=== PATIENT | male | born 1965 | race Caucasian/White ===

== ENCOUNTER 2025-02-03 19:21 | Emergency (ER) | payer SELFPAY ==
[2025-02-03 19:32] VITALS: BP 205/104; PULSE 83; RESP 18; O2SAT 97; BMI 25.8
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
[2025-02-03] MEDS: HYDROcodone-acetaminophen 5-325 mg Tablet 2 TAB PO (22:46)
== END 2025-02-03 23:41 | disposition home or self-care (01) ==
PROVIDERS: Emergency Provider Family Medicine
DX: S20.211A Contusion of right front wall of thorax, initial encounter (principal); S62.501A Fracture of unspecified phalanx of right thumb, initial encounter for closed fracture; W05.1XXA Fall from non-moving nonmotorized scooter, initial encounter
CPT/HCPCS: 71101; 73080; 73130; 96374; 99284; J1885; J9999

== ENCOUNTER 2025-02-09 10:55 | Emergency (ER) | payer SELFPAY ==
[2025-02-09] VITALS (9 sets, daily range): BP systolic 150–199; BP diastolic 84–99; PULSE 59–79; RESP 14–18; TEMP 37; O2SAT 90–96; BMI 24.3
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
[2025-02-09 12:04] LABS: Hematocrit 45.1 % (37-53); Hemoglobin 15.40 g/dL (11.27-16.99); Mean Corpuscular HGB Conc 34.1 g/dL (30-55); Mean Corpuscular Hemoglobin 31.3 pg (27-33); Mean Corpuscular Volume 91.7 fl (82-101); Nucleated Red Blood Cells % 0 %; Platelet Count 151 10^3/cmm (157-399); Red Blood Count 4.92 10^6/uL (3.85-5.65); White Blood Count 9.08 10^3/uL (3.29-11.43)
[2025-02-09 12:26] LABS: Alanine Aminotransferase 17 U/L (0-41); Albumin Level 4.0 g/dL (3.5-5.2); Alkaline Phosphatase 50 U/L (40-130); Anion Gap 16.5 (5-19); Aspartate Amino Transferase 17 U/L (0-40); Blood Urea Nitrogen 14 mg/dL (8-23); Calcium 10.1 mg/dL (8.5-10.5); Carbon Dioxide 26 mmol/L (22-29); Chloride 97 mmol/L (98-107); Creatinine Clr Calc Pharmacy 96.1030; Globulin 3.8 g/dL (1.3-4.6); Glucose 104 mg/dL (65-115); Osmolality Calculated 283 mOsm/kg (285-295); Potassium 3.5 mmol/L (3.5-5.1); Sodium 136 mmol/L (136-145); Total Protein 7.8 g/dL (6.6-8.7)
[2025-02-09 12:27] LABS: Lipase 15 U/L (13-60)
[2025-02-09] MEDS: ondansetron 2 mg/ML SDV 2 mL 4 MG IVP (12:57)
[2025-02-09] MEDS: HYDROmorphone 0.5 MG/0.5 ML INJ 1 MG IVP (12:57)
[2025-02-09] MEDS: albuterol 8 gm MDI 2 PUFF INHALATION (14:20)
== END 2025-02-09 14:54 | disposition home or self-care (01) ==
PROVIDERS: General Practice; Emergency Provider Emergency Medicine
DX: S22.41XA Multiple fractures of ribs, right side, initial encounter for closed fracture (principal); V00.141A Fall from scooter (nonmotorized), initial encounter
CPT/HCPCS: 36415; 71045; 71250; 74176; 80053; 83690; 85025; 94640; 96374; 96375; 99285; J1171; J2405; J3535; J9999

== ENCOUNTER → 2025-04-11 08:55 | Outpatient (BNVA) | payer MEDICAID, SELFPAY | PROVIDERS: Family Provider Family Medicine; PCP Family Medicine; Visit Provider Family Medicine | DX: Z13.6 Encounter for screening for cardiovascular disorders (principal) | CPT/HCPCS: 80053; 80061; 82607; 84439; 84443; 85025 ==